=== PATIENT | male | born 1955 | race Two or more races ===

== ENCOUNTER 2020-11-21 18:03 | Emergency (ER) | payer MEDICAID ==
[~2020-11-21] VITALS: Ht 175.3 cm; Wt 86.2 kg
[~2020-11-21 18:03] MED LIST: ASPI81CH43 PO; BENA20TA PO; HAL5T PO; METO-6 PO; PAR20T PO; TRAZ1TAB12 PO; ZIPR80CA37 PO
[2020-11-21] MEDS ORDERED: HYDROcodone-ACET 10/325MG TAB PO ONE (21:15)
[2020-11-21 21:45] VITALS: BP 95/77
== END 2020-11-21 22:05 | disposition home or self-care (01) ==
LOC: ER 18:03
DX: S39.012A Strain of muscle, fascia and tendon of lower back, initial encounter (principal); M47.816 Spondylosis without myelopathy or radiculopathy, lumbar region; F17.200 Nicotine dependence, unspecified, uncomplicated; I10 Essential (primary) hypertension; Z90.49 Acquired absence of other specified parts of digestive tract; W01.0XXA Fall on same level from slipping, tripping and stumbling without subsequent striking against object, initial encounter; Y93.89 Activity, other specified; Y92.89 Other specified places as the place of occurrence of the external cause; Y99.8 Other external cause status
CPT/HCPCS: 72100